=== PATIENT | female | born 1965 | race Caucasian/White ===

== ENCOUNTER → 2021-04-24 | Outpatient (CLI) | payer OTHER ==
[~2021-04-24] MED LIST: MIRALAX17 GM PO; NAPROXEN 250 M250 MG PO; NORCO 5-325 TA1 EACH PO
== END ==
LOC: CT 04-10 08:30
DX: R10.84 Generalized abdominal pain (principal); N32.89 Other specified disorders of bladder
CPT/HCPCS: 36415; 82565; Q9967

== ENCOUNTER → 2021-12-17 | Outpatient (CLI) | payer OTHER | LOC: LAB 07:23 | DX: E55.9 Vitamin D deficiency, unspecified (principal) | CPT/HCPCS: 36415 ==